=== PATIENT | male | born 1980 | race Hispanic/Latino ===

== ENCOUNTER 2017-11-24 13:42 | Inpatient (IN) | payer OTHER ==
[2017-11-24 13:50] VITALS: BMI 27.8
[2017-11-24 14:28] LABS: BASO # 0.1 K/uL (0.0-0.2); BASO % 1.5 % (0.0-2.0); EOS # 0.1 K/uL (0.0-0.7); EOS % 2.7 % (0.0-4.0); HEMOGLOBIN 17.4 g/dL (12.0-18.0); LYMPH # 1.4 K/uL (1.0-4.3); LYMPH % 26.9 % (20.0-40.0); MEAN CELL VOLUME 103.8 fL (80.0-94.0); MEAN CORPUSCULAR HEMOGLOBIN 36.4 pg (27.0-31.0); MEAN CORPUSCULAR HGB CONC 35.1 g/dL (33.0-37.0); MEAN PLATELET VOLUME 9.3 fL (7.2-11.7); MONO # 0.6 K/uL (0.0-0.8); MONO % 10.9 % (0.0-10.0); NEUT # 3.1 K/uL (1.8-7.0); NRBC % 0.2 % (0.0-2.0); RBC 4.77 Mil/uL (4.40-5.90); WHITE BLOOD COUNT 5.3 K/uL (4.8-10.8)
[2017-11-24 14:32] LABS: URINE BILIRUBIN NEGATIVE (NEGATIVE); URINE BLOOD NEGATIVE (NEGATIVE); URINE CLARITY Clear (Clear); URINE COLOR Straw (YELLOW); URINE GLUCOSE (UA) NORMAL (Normal); URINE LEUKOCYTE ESTERASE NEG Leu/uL (Negative); URINE PROTEIN NEGATIVE (NEGATIVE); URINE UROBILINOGEN NORMAL mg/dL (0.2-1.0)
[2017-11-24 14:40] LABS: ALB/GLOB RATIO 1.5 (1.0-2.1); ALBUMIN 4.4 g/dL (3.5-5.0); ALT/SGPT 441 U/L (21-72); AST/SGOT 325 U/L (17-59); BLOOD UREA NITROGEN 11 mg/dL (9-20); CALCIUM 9.3 mg/dl (8.6-10.4); GFR AFRICAN-AMERICAN > 60; GFR NON-AFRICAN AMERICAN > 60
[2017-11-24 14:44] LABS: BARBITURATES, UR NEGATIVE (NEGATIVE); BENZODIAZEPINES, UR NEGATIVE (NEGATIVE); OPIATES, UR NEGATIVE (NEGATIVE); PHENCYCLIDINE, UR NEGATIVE (NEGATIVE)
--- NOTE | 2017-11-24 15:00 | C.PDOC ---
History Of Present Illness 37 year old male presents to ED requesting detox from heroin and alcohol. Last drinks was last night and last use of heroin was this morning. Pt is pre- screened. He admits to smoking cigarettes and using marijuana occasionally. Otherwise, denies any active physical complaints at this time. Time Seen by Provider: 11/24/17 14:04 Chief Complaint (Nursing): Substance Abuse History Per: Patient History/Exam Limitations: no limitations Severity: None Pain Scale Rating Of: 0 Associated Symptoms: denies: Suicidal Thoughts, Suicidal Plan Involuntary Hold By: None Additional History Per: Patient Past Medical History Reviewed: Historical Data, Nursing Documentation, Vital Signs Vital Signs: Last Vital Signs Temp 98 F 11/24/17 17:34 Pulse 80 11/24/17 17:34 Resp 18 11/24/17 17:34 BP 140/80 11/24/17 17:34 Pulse Ox 98 11/24/17 17:34 - Medical History PMH: Arthritis Family History: States: Unknown Family Hx - Social History Hx Alcohol Use: Yes Hx Substance Use: Yes (mJ) - Immunization History Hx Tetanus Toxoid Vaccination: No Hx Influenza Vaccination: No Hx Pneumococcal Vaccination: No Review Of Systems Except As Marked, All Systems Reviewed And Found Negative. Constitutional: Negative for: Fever, Chills Cardiovascular: Negative for: Chest Pain Respiratory: Negative for: Shortness of Breath Gastrointestinal: Negative for: Nausea, Vomiting, Abdominal Pain Neurological: Negative for: Headache, Dizziness Physical Exam - Physical Exam Appears: Non-toxic, No Acute Distress Skin: Normal Color, Warm, Dry Head: Atraumatic, Normacephalic Eye(s): bilateral: Normal Inspection Oral Mucosa: Moist Neck: Normal ROM, Supple Cardiovascular: Rhythm Regular Respiratory: Normal Breath Sounds, No Rales, No Rhonchi, No Wheezing Gastrointestinal/Abdominal: Soft, No Tenderness Extremity: Normal ROM Neurological/Psych: Oriented x3, Normal Speech ED Course And Treatment - Laboratory Results Result Diagrams: 11/24/17 14:24 11/24/17 14:24 O2 Sat by Pulse Oximetry: 96 (RA) Pulse Ox Interpretation: Normal Medical Decision Making Medical Decision Making: Plan: * Blood work * Urinalysis Patient medically cleared and admitted to detox under Dr. Mae. Disposition - Disposition Disposition: HOSPITALIZED Disposition Time: 16:36 Condition: STABLE - Clinical Impression Clinical Impression: Alcohol use disorder, severe, dependence - Scribe Statement The provider has reviewed the documentation as recorded by the Scribe Ni Anderson All medical record entries made by the Scribe were at my direction and personally dictated by me. I have reviewed the chart and agree that the record accurately reflects my personal performance of the history, physical exam, medical decision making, and the department course for this patient. I have also personally directed, reviewed, and agree with the discharge instructions and disposition.
--- NOTE | 2017-11-24 17:45 | PCM.BM ---
<KenDarlyn - Last Filed: 11/24/17 17:44> Treatment Plan Problems - Problems identified on initial assessmt Potential for alcohol withdrawal Date Initiated: 11/24/17 Time Initiated: 17:45 Assessment reference: NA Status: Active Treatment assets and liabiliti Patient Assests: cooperative, ADL independent, negotiates basic needs, cognitively intact Patient Liabilities: substance abuse (ETOH), medical problems (Hep C, arthritis) - Milieu Protocol Maintain good personal hygiene: daily Encourage regular showers, daily Remind patient to perform daily oral care, daily Assist patient to perform ADL's Conduct patient checks and document Observation sheet: Q15 minutes Maintain personal safety: every shift Educate patient to report safety concerns to staff, every shift Monitor environment for contraband/sharps Medication safety: Monitor for expected outcome, potential side effects: every shift, Assess barriers to learning: every shift, Assess readiness for medication education: every shift <Argelia Junior - Last Filed: 11/25/17 22:43> - Diagnosis (1) Alcohol use disorder, severe, dependence Status: Acute Interventions: 11/25/17 22:43 * Assess 7x/week regarding severity of withdrawal * Educate regarding risks, benefits, side effects and alternatives of medications * Use Motivational Interviewing for abstinence * Use CBT for relapse prevention * Medication management for withdrawal symptoms * Encourage medication assisted treatment *
[2017-11-25] MEDS: Multiple Vitamins Tab PO SCH (10:29)
--- NOTE | 2017-11-25 15:03 | PCM.PSYCH ---
Initial Psychiatric Evaluation - Initial Psychiatric Evaluation Type of Admission: Voluntary Legal Status: Capacity Chief Complaint (in patient's own words): "I want to stop drinking" History of Present Illness and Precipitating Events: Pt is seen, chart reviewed, and case discussed with staff. This is a 37 y/o male, single with no children. He works as an insurance sales executive in a restaurant, and he lives with a roommate that is also his boss. He is here for alcohol detox, his last drink was yesterday. On average, pt admits to drinking gallon of Fireball daily along with 5-6 beers; he has been drinking this heavily since his best friend about two years ago. When pt stops drinking suddenly, his withdrawal symptoms include N/V, headaches , shakes, no seizures. Says that he may have blacked out at times before but doesn't remember. Pt has a history of IV drug use for 12 years but has been clean for the past 4 years. He smokes marijuana sometimes; smokes 2 pack of cigarettes a day for the past 4 years, but has been smoking less heavily for many years prior. He has never been to detox before but has been to rehab 3x in [place]. Plan this time is to attend AA meetings. Psych hx: denies, but currently feels anxious Medical hx: Hep C, arthritis in knees; pt mentioned having a nose bleed last night Family psych hx: denies Current Medications: Active Medications Generic Name Dose Route Start Last Admin Trade Name Freq PRN Reason Stop Dose Admin Clonidine HCl 0.1 mg 11/25/17 10:07 Catapres PO Q4H PRN Symptoms of alcohol withdrawl Folic Acid 1 mg 11/25/17 10:00 11/25/17 10:29 Folic Acid PO Not Given DAILY [facility] Hydroxyzine HCl 25 mg 11/24/17 17:27 Atarax PO Q6 PRN Anxiety Lorazepam 1 mg 11/24/17 17:20 Ativan PO Q4H PRN Symptoms of alcohol withdrawl Lorazepam 2 mg 11/25/17 10:15 11/25/17 10:29 Ativan PO 11/29/17 10:14 Not Given Q6H ESSIE Taper Multivitamins 1 tab 11/25/17 10:00 11/25/17 10:29 Hexavitamin PO Not Given DAILY [facility] Nicotine 1 patch 11/24/17 17:22 11/25/17 10:29 Nicoderm Cq TD Not Given DAILY ESSIE Pneumococcal Polyvalent Vaccine 0.5 ml 11/26/17 10:00 Pneumovax 23 Vaccine IM 11/26/17 10:01 .ONCE ONE Thiamine HCl 100 mg 11/25/17 10:00 11/25/17 10:29 Vitamin B1 Tab PO Not Given DAILY ESSIE Past Psychiatric History - Past Psychiatric History Pertinent Medical Hx (Current Medical&Sleep Prob, Allergies): Allergies Allergy/AdvReac Type Severity Reaction Status Date / Time No Known Allergies Allergy Verified 11/24/17 13:49 No Known Home Med 11/24/17 Review of Systems - Psychiatric Psychiatric: Anxiety. absent: Confusion, Depression, Homicidal Ideation, Paranoia, Suicidal Ideation Mental Status Examination - Personal Presentation Personal Presentation: Looks stated age - Affect Affect: Constricted - Motor Activity Motor Activity: Calm - Reliability in Providing Information Reliability in Providing Information: Good - Speech Speech: Organized, Relevant, Coherent - Mood Mood: Neutral - Formal Thought Process Formal Thought Process: No Impairment - Obsessions/Compulsions Obsessions: None Compulsions: None - Cognitive Functions Orientation: Person, Place, Situation, Time Sensorium: Alert Attention/Concentration: Attentive Abstract Thinking: [place] Estimate of Intelligence: Average Judgement: Intact, as evidence by: Insight regarding need for hospitalization Memory: Recent intact, as evidence by: Ability to recall events of the day, Remote intact, as evidenced by: Abilit to recall sig. life events - Risk Risk: Withdrawal, Diminished functioning - Strength & Assets Inventory Strength & Assets Inventory: Employment status, Cooperative - Limitations Limitations: Other DSM 5 DX - DSM 5 DSM 5 Diagnosis: Alcohol withdrawal Alcohol use disorder, severe Tobacco use disorder, severe Cannabis use disorder, moderate Depressive disorder, r/o DALE - Recommended/Plan of Treatment Treatment Recommendations and Plan of Treatment: Taper with Ativan Gabapentin for augmentation if needed As needed medications, Atarax for anxiety All risks, benefits and alternatives of the meds discussed, and the pt agreed and understood. Attend groups and activities Supportive therapy and psychoeducation [place] for abstinence CBT for relapse prevention Encourage MAT Refer to rehab or IOP, and self-help groups Smoking cessation with NE Nicotine patch if needed Developing coping mechanisms for preventing relapse Follow up with primary care doctor if needed Involving family in post detox care 33 min Projected ELOS: 4-5 days - Smoking Cessation Smoking Cessation Initiated: Yes
[2017-11-25 16:43] VITALS: RESP 18
[2017-11-26] MEDS ORDERED: Pneumococcal 23-Valent Vaccine IM ONE (10:00)
[2017-11-26] MEDS: Multiple Vitamins Tab PO SCH (10:07)
--- NOTE | 2017-11-26 12:56 | PCM.PYCHDC ---
Mental Status Examination - Mental Status Examination Orientation: Person, Place, Situation, Time Memory: Intact Mood: Other (irate) Affect: Constricted Speech: Appropriate Attention: WNL Concentration: Poor Association: WNL Fund of Knowledge: WNL Formal Thought Process: No Impairment Suicidal Ideation: No Current Homicidal Ideation?: No Discharge Summary - Discharge Note Reason for Hospitalization: Alcohol detox. Consultations:: List each consultation separately and include: 1. Reason for request. 2. Findings. 3. Follow-up Summary of Hospital Course include:: 1. Description of specific treatment plan utilized for patients during their course of treatmen. 2. Summarize the time- course for resolution of acute symptoms and/or regressed behaviors. 3. Describe issues identified and worked on during hospitalization. 4. Describe medication utilized. 5. Describe medical problems identified and treated. 6. Reassessment of suicide risk Summary of Hospital Course: Pt is seen, chart reviewed, and case discussed with staff. On admission: This is a 37 y/o male, single with no children. 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 He is here for alcohol detox, his last drink was yesterday. On average, pt admits to drinking gallon of Fireball daily along with 5-6 beers; he has been drinking this heavily since his best friend about two years ago. When pt stops drinking suddenly, his withdrawal symptoms include N/V, headaches , shakes, no seizures. Says that he may have blacked out at times before but doesn't remember. Pt has a history of IV drug use for 12 years but has been clean for the past 4 years. He smokes marijuana sometimes; smokes 2 pack of cigarettes a day for the past 4 years, but has been smoking less heavily for many years prior. He has never been to detox before but has been to rehab 3x in [place]. Plan this time is to attend AA meetings. Psych hx: denies, but currently feels anxious Medical hx: Hep C, arthritis in knees; pt mentioned having a nose bleed last night Family psych hx: denies Hospital course: The pt was admitted and started on treatment with psychotherapy, support, psychoeducation and medications. [place] used. All the risks and benefits of medications are discussed and the patient understood and agreed. He did not attend groups and he woke up the next day and said he would have to leave, w/o any reason. 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 He understood but still left - Final Diagnosis (DSM 5) Condition upon Discharge: IMPROVED DSM 5: Alcohol withdrawal Alcohol use disorder, severe Tobacco use disorder, severe Cannabis use disorder, moderate Depressive disorder, r/o Personality d/o - unspecified Disposition: AGAINST MEDICAL ADVICE Follow-up Treatment Plan: Use relapse prevention skills Return to ER or call 911 if suicidal, homicidal or symptoms relapse. Stay away from stress, alcohol and drugs. See primary doctor regularly and get labs.
[2017-11-26 13:14] VITALS: BP 120/79; PULSE 60; TEMP 98.7; O2SAT 100
== END 2017-11-26 13:19 | disposition left against medical advice (07) | DRG 749 ==
LOC: C.ER 13:42 → C.7D 16:36
PROVIDERS: ADMIT Psychiatry & Neurology Psychiatry; ATTEND Psychiatry & Neurology Psychiatry
PROC: HZ2ZZZZ Detoxification Services for Substance Abuse Treatment (ICD-10-PCS; principal; 2017-11-24)
PROC: HZ52ZZZ Individual Psychotherapy for Substance Abuse Treatment, Cognitive-Behavioral (ICD-10-PCS; 2017-11-24)
PROC: HZ59ZZZ Individual Psychotherapy for Substance Abuse Treatment, Supportive (ICD-10-PCS; 2017-11-24)
PROC: HZ56ZZZ Individual Psychotherapy for Substance Abuse Treatment, Psychoeducation (ICD-10-PCS; 2017-11-24)
PROC: HZ42ZZZ Group Counseling for Substance Abuse Treatment, Cognitive-Behavioral (ICD-10-PCS; 2017-11-24)
PROC: HZ46ZZZ Group Counseling for Substance Abuse Treatment, Psychoeducation (ICD-10-PCS; 2017-11-24)
PROC: GZHZZZZ Group Psychotherapy (ICD-10-PCS; 2017-11-24)
PROC: GZ58ZZZ Individual Psychotherapy, Cognitive-Behavioral (ICD-10-PCS; 2017-11-24)
PROC: GZ56ZZZ Individual Psychotherapy, Supportive (ICD-10-PCS; 2017-11-24)
DX: F10.230 Alcohol dependence with withdrawal, uncomplicated (principal); B19.20 Unspecified viral hepatitis C without hepatic coma; F12.20 Cannabis dependence, uncomplicated; F17.210 Nicotine dependence, cigarettes, uncomplicated; F32.9 Major depressive disorder, single episode, unspecified; M17.0 Bilateral primary osteoarthritis of knee; F41.1 Generalized anxiety disorder; Y90.6 Blood alcohol level of 120-199 mg/100 ml